=== PATIENT | male | born 1950 | race Caucasian/White ===

== ENCOUNTER 2019-01-13 09:32 | Emergency (ER) | payer MEDICAID, MEDICARE ==
[~2019-01-13] VITALS: Ht 172.7 cm; Wt 79.2 kg
[2019-01-13 09:35] VITALS: BP 168/81
--- NOTE | 2019-01-13 09:54 | NUR ---
PT HIT L EYE ON CORNER OF CHAIR THIS AM. R EYE WITH SWELLING, CONCERNED FOR FB, PT WITH HX IRITIS. EDMD IN TO COMPLETE EYE EXAM, NO FB, NO SIGNS OF IRITIS PER MD, PT TO D/C
--- NOTE | 2019-01-13 10:32 | NUR ---
PT GIVEN DISCHARGE INSTRUCTIONS, UNDERSTADING STATED. PT ESCORTED TO CHECK OUT WITH ALL BELONGINGS.
== END 2019-01-13 10:35 | disposition home or self-care (01) ==
LOC: ED 10:19
DX: H11.32 Conjunctival hemorrhage, left eye (principal); X58.XXXA Exposure to other specified factors, initial encounter; Y93.89 Activity, other specified; Y92.89 Other specified places as the place of occurrence of the external cause; Y99.8 Other external cause status
CPT/HCPCS: 99282; 99283